=== PATIENT | female | born 1990 | race Caucasian/White ===

== ENCOUNTER 2016-06-28 06:31 | Day surgery (SDC) | payer BC ==
[~2016-06-28] VITALS: Ht 160 cm; Wt 90.0 kg
[~2016-06-28 06:31] MED LIST: BUPIVACAINE/PF-EPI 0.25% 1:200K ONE; CIPR500T87 PO; OXYC-302 PO
[2016-06-28] MEDS ORDERED: FENTANYL PF 250 MCG/5ML ONE (06:46)
[2016-06-28] MEDS ORDERED: LIDOCAINE 1%, 2ML ONE (06:52)
[2016-06-28 07:03] VITALS: BP 113/77
[2016-06-28] MEDS ORDERED: LACTATED RINGERS 1,000 ML IV SCH ×2 (07:09→08:17)
[2016-06-28] MEDS ORDERED: LIDOCAINE 1%, 2ML SQ PRN (07:30)
[2016-06-28] MEDS ORDERED: PHENYLEPHRINE 10 MG/ML ONE (07:35)
[2016-06-28] MEDS ORDERED: DEXAMETHASONE 4 MG/ML, 1ML ONE (07:35)
[2016-06-28] MEDS ORDERED: ROCURONIUM 10 MG/ML ONE (07:35)
[2016-06-28] MEDS ORDERED: GLYCOPYRROLATE 0.2MG/1ML ONE (07:35)
[2016-06-28] MEDS ORDERED: PROPOFOL 10 MG/ML, 20ML ONE (07:35)
[2016-06-28] MEDS ORDERED: CEFAZOLIN 1,000 MG ONE (07:35)
[2016-06-28] MEDS ORDERED: NEOSTIGMINE 1 MG/ML, 10ML ONE (07:35)
[2016-06-28] MEDS ORDERED: EPHEDRINE 50 MG/ML, 1ML ONE (07:35)
[2016-06-28] MEDS ORDERED: SUCCINYLCHOLINE 20 MG/ML, 10ML ONE (07:35)
[2016-06-28] MEDS ORDERED: ONDANSETRON 2MG/ML, 2ML ONE (07:35)
[2016-06-28] MEDS ORDERED: SODIUM CITRATE/CITRIC ACID 30 ML UDC PO ONE (08:00)
[2016-06-28] MEDS ORDERED: PROMETHAZINE 25 MG/ML, 1ML IV PRN (08:30)
[2016-06-28] MEDS ORDERED: HYDROmorphone 1 MG/ML, 1ML IV PRN (08:30)
[2016-06-28] MEDS ORDERED: FENTANYL PF 100 MCG/2ML IV PRN (08:30)
[2016-06-28] MEDS ORDERED: HYDROcodone/APAP 5/325 TABLET PO PRN (08:30)
[2016-06-28] MEDS ORDERED: morphine SULFATE 10 MG/ML, 1ML IVPush PRN (08:30)
[2016-06-28] MEDS ORDERED: ACETAMINOPHEN 325 MG TABLET PO PRN (08:30)
[2016-06-28] MEDS ORDERED: ONDANSETRON 2MG/ML, 2ML IVPush PRN ×2 (08:30)
[2016-06-28] MEDS ORDERED: HYDROcodone/APAP 7.5-325MG/15ML UDC PO PRN (08:30)
[2016-06-28] MEDS ORDERED: OXYcodone 5 MG/5 ML ORAL.SOL UDC PO PRN (08:30)
[2016-06-28] MEDS ORDERED: ACETAMINOPHEN 325 MG TABLET ONE (08:54)
[2016-06-28] MEDS ORDERED: FENTANYL PF 100 MCG/2ML ONE (08:54)
[2016-06-28] MEDS ORDERED: ACETAMINOPHEN 650 MG/20.3 ML UDC ONE (08:54)
[2016-06-28] MEDS ORDERED: OXYcodone 5 MG/5 ML ORAL.SOL UDC ONE (08:55)
[2016-06-28] MEDS ORDERED: HYDROmorphone 2 MG/ML, 1ML ONE (09:21)
== END 2016-06-28 12:20 | disposition home or self-care (01) ==
LOC: OUT 06:31
PROVIDERS: ATTEND Thoracic Surgery (Cardiothoracic Vascular Surgery)
DX: O99.612 Diseases of the digestive system complicating pregnancy, second trimester (principal); K80.10 Calculus of gallbladder with chronic cholecystitis without obstruction; Z3A.16 16 weeks gestation of pregnancy
CPT/HCPCS: 47562; 88304; A4649; J0330; J0690; J1100; J1170; J2370; J2405; J2704; J2710; J3010; J3490; J7120

== ENCOUNTER 2016-07-03 15:40 | Emergency (ER) | payer BC ==
[~2016-07-03 15:40] MED LIST changes: -BUPIVACAINE/PF-EPI 0.25% 1:200K ONE
[2016-07-03] MEDS ORDERED: HYDROmorphone 1 MG/ML, 1ML ONE ×2 (16:26→17:57)
[2016-07-03] MEDS ORDERED: ONDANSETRON 2MG/ML, 2ML ONE (16:26)
[2016-07-03] MEDS ORDERED: SODIUM CHLORIDE 0.9% 1,000ML IVBOLUS ONE (16:30)
[2016-07-03] MEDS ORDERED: SODIUM CHLORIDE FLUSH 10ML SYR IVF ONE (16:30)
[2016-07-03] MEDS ORDERED: ONDANSETRON 2MG/ML, 2ML IVPush ONE (16:30)
[2016-07-03] MEDS: HYDROmorphone 1 MG/ML, 1ML IVPush PRN ×2 (16:42→18:01)
[2016-07-03 16:45] LABS: BLOOD UREA NITROGEN 7 mg/dL (7-18)
[2016-07-03 16:49] LABS: ASPARTATE AMINO TRANSFERASE 5 U/L (15-37)
[2016-07-03 20:07] VITALS: BP 118/70
== END 2016-07-03 20:10 | disposition home or self-care (01) ==
LOC: ED 19:21
DX: O26.892 Other specified pregnancy related conditions, second trimester (principal); N13.2 Hydronephrosis with renal and ureteral calculous obstruction; Z3A.17 17 weeks gestation of pregnancy; Z87.440 Personal history of urinary (tract) infections; Z87.442 Personal history of urinary calculi; Z90.49 Acquired absence of other specified parts of digestive tract; Z96.89 Presence of other specified functional implants
CPT/HCPCS: 36415; 76700; 76815; 80053; 81001; 83690; 85025; 96374; 96375; 96376; 99285; J1170; J2405; J7030

== ENCOUNTER 2016-07-03 20:20 | Observation (INO) | payer BC ==
[2016-07-03] MEDS ORDERED: D5%-LACTATED RINGERS 1,000 ML IV SCH (21:00)
[2016-07-03] MEDS ORDERED: LACTATED RINGERS 1,000 ML IVBOLUS ONE (21:00)
[2016-07-03] MEDS ORDERED: ONDANSETRON 2MG/ML, 2ML IVPush PRN (21:00)
[2016-07-03] MEDS ORDERED: METOCLOPRAMIDE 5 MG/ML, 2ML IVPush PRN (21:00)
[2016-07-03] MEDS ORDERED: ONDANSETRON 2MG/ML, 2ML ONE (21:26)
[2016-07-03] MEDS ORDERED: KETOROLAC 30 MG/1 ML ONE (21:26)
[2016-07-03] MEDS ORDERED: KETOROLAC 30 MG/1 ML IVPush SCH (21:30)
[2016-07-03] MEDS ORDERED: PLEASE ENTER HEIGHT AND WEIGHT MC SCH (22:00)
[2016-07-04] MEDS ORDERED: PLEASE ENTER HEIGHT AND WEIGHT MC SCH (05:00)
== END 2016-07-04 07:30 | disposition home or self-care (01) ==
LOC: LDIP 20:20
PROVIDERS: ADMIT Obstetrics & Gynecology; ATTEND Obstetrics & Gynecology
DX: O26.892 Other specified pregnancy related conditions, second trimester (principal); O99.212 Obesity complicating pregnancy, second trimester; E66.01 Morbid (severe) obesity due to excess calories; O21.2 Late vomiting of pregnancy; R10.9 Unspecified abdominal pain; Z3A.20 20 weeks gestation of pregnancy; Z90.49 Acquired absence of other specified parts of digestive tract; Z87.442 Personal history of urinary calculi
CPT/HCPCS: 36415; 59025; 85613; 85670; 85705; 85732; 96361; 96374; 96375; 99201; G0378; J1885; J2405; J7120; 96360; 96372; G0463; J7121

== ENCOUNTER 2016-09-11 13:15 | Outpatient (CLI) | payer BC ==
[~2016-09-11] VITALS: Ht 160 cm; Wt 90.9 kg
[2016-09-11 13:26] VITALS: BP 99/58
== END 2016-09-11 15:15 | disposition home or self-care (01) ==
LOC: LDOP 13:15
PROVIDERS: ATTEND Obstetrics & Gynecology
DX: O26.893 Other specified pregnancy related conditions, third trimester (principal); R10.9 Unspecified abdominal pain; Z3A.30 30 weeks gestation of pregnancy
CPT/HCPCS: 36415; 59025; 81001; 82731; 87086; 99211; G0463

== ENCOUNTER 2016-10-05 11:55 | Outpatient (CLI) | payer BC ==
[~2016-10-05] VITALS: Ht 160 cm; Wt 95.4 kg
== END 2016-10-05 13:30 | disposition home or self-care (01) ==
LOC: LDOP 11:55
PROVIDERS: ATTEND Obstetrics & Gynecology
DX: O26.893 Other specified pregnancy related conditions, third trimester (principal); O62.9 Abnormality of forces of labor, unspecified; O21.0 Mild hyperemesis gravidarum; O26.833 Pregnancy related renal disease, third trimester; O99.613 Diseases of the digestive system complicating pregnancy, third trimester; N20.0 Calculus of kidney; Z90.49 Acquired absence of other specified parts of digestive tract; Z3A.33 33 weeks gestation of pregnancy
CPT/HCPCS: 59025; 81001; 87086; 99211; G0463

== ENCOUNTER → 2016-11-05 | Outpatient (CLI) | payer BC ==
[2016-11-05 06:27] VITALS: BP 121/87
== END | disposition home or self-care (01) ==
LOC: LDOP 06:10
PROVIDERS: ATTEND Obstetrics & Gynecology
DX: O26.893 Other specified pregnancy related conditions, third trimester (principal); O21.0 Mild hyperemesis gravidarum; O62.9 Abnormality of forces of labor, unspecified; O26.833 Pregnancy related renal disease, third trimester; N20.0 Calculus of kidney; Z3A.33 33 weeks gestation of pregnancy
CPT/HCPCS: 59025; 81001; 87086; 99211; G0463

== ENCOUNTER 2016-11-19 21:02 | Inpatient (IN) | payer BC ==
[~2016-11-19] VITALS: Ht 153.2 cm; Wt 95.0 kg
[2016-11-19 21:55] VITALS: BP 120/78
[2016-11-19] MEDS ORDERED: OXYTOCIN 30U/ 0.9% NaCL 500ML 500 ML IV PRN (23:39)
[2016-11-19] MEDS ORDERED: D5%-LACTATED RINGERS 1,000 ML IV SCH (23:39)
[2016-11-19] MEDS ORDERED: OXYTOCIN 30U/ 0.9% NaCL 500ML 500 ML IV ONE (23:39)
[2016-11-19] MEDS: LACTATED RINGERS 1,000 ML IV SCH (23:45)
[2016-11-20] MEDS ORDERED: TERBUTALINE 1 MG/ML, 1ML IVPush PRN
[2016-11-20] MEDS ORDERED: SODIUM CITRATE/CITRIC ACID 30 ML UDC PO PRN
[2016-11-20] MEDS ORDERED: ONDANSETRON 2MG/ML, 2ML IVPush PRN
[2016-11-20] MEDS ORDERED: FENTANYL PF 100 MCG/2ML IV PRN
[2016-11-20] MEDS ORDERED: METOCLOPRAMIDE 5 MG/ML, 2ML IVPush PRN
[2016-11-20 00:01] LABS: HEMATOCRIT 38.1 % (34.6-47.8); HEMOGLOBIN 12.6 g/dL (11.7-16.4); WHITE BLOOD COUNT 11.4 x10^3/uL (3.4-10)
[2016-11-20] MEDS: FENTANYL PF 100 MCG/2ML IVPush PRN ×4 (00:07→04:55)
[2016-11-20] MEDS: LACTATED RINGERS 1,000 ML IV SCH ×2 (04:55→15:39)
[2016-11-20] MEDS ORDERED: METHYLERGONOVINE 0.2 MG/ML IM PRN (07:00)
[2016-11-20] MEDS ORDERED: CALCIUM CARBONATE 500 MG TAB.CHEW PO PRN ×2 (07:00)
[2016-11-20] MEDS ORDERED: MISOPROSTOL 200 MCG TABLET PR PRN (07:00)
[2016-11-20] MEDS ORDERED: DOCUSATE 100 MG CAPSULE PO PRN (07:00)
[2016-11-20] MEDS ORDERED: CARBOPROST TROMETHAMINE 250 MCG/ML, 1ML IM PRN (07:00)
[2016-11-20] MEDS ORDERED: ONDANSETRON 2MG/ML, 2ML IV PRN (07:00)
[2016-11-20] MEDS ORDERED: ACETAMINOPHEN 325 MG TABLET PO PRN (07:00)
[2016-11-20] MEDS ORDERED: HYDROcodone/APAP 5/325 TABLET PO PRN ×2 (07:00)
[2016-11-20] MEDS ORDERED: IBUPROFEN 600 MG TABLET ONE (07:15)
[2016-11-20] MEDS: IBUPROFEN 600 MG TABLET PO PRN ×2 (07:17→16:38)
[2016-11-20] MEDS ORDERED: OXYTOCIN 30U/ 0.9% NaCL 500ML 500 ML ONE (07:47)
[2016-11-20] MEDS: OXYTOCIN 30U/ 0.9% NaCL 500ML 500 ML IV SCH ×2 (07:52→16:49)
[2016-11-20] MEDS ORDERED: PRENATAL VIT/IRON/FA 1 EACH TABLET PO SCH (09:00)
[2016-11-20 12:25] VITALS: BP 105/56
[2016-11-20 14:28] LABS: HEMATOCRIT 34.5 % (34.6-47.8); HEMOGLOBIN 11.5 g/dL (11.7-16.4); WHITE BLOOD COUNT 12.3 x10^3/uL (3.4-10)
[2016-11-20 16:20] VITALS: BP 102/61
[2016-11-20 20:05] VITALS: BP 101/57
[2016-11-20] MEDS ORDERED: DIPH,PERTUSS(ACELL),TET VAC/PF NC IM-VACC ONE (21:00)
[2016-11-21 01:00] VITALS: BP 104/65
[2016-11-21] MEDS: OXYTOCIN 30U/ 0.9% NaCL 500ML 500 ML IV SCH (02:49)
[2016-11-21 04:55] VITALS: BP 116/68
[2016-11-21 08:05] VITALS: BP 93/57
== END 2016-11-21 11:10 | disposition home or self-care (01) | DRG 775 ==
LOC: LDOP 21:02 → LDIP 11-20 00:12 → 2NW 11-20 08:40
PROVIDERS: ADMIT Obstetrics & Gynecology; ATTEND Obstetrics & Gynecology
PROC: 10E0XZZ Delivery of Products of Conception, External Approach (ICD-10-PCS; principal; 2016-11-20)
PROC: 10907ZC Drainage of Amniotic Fluid, Therapeutic from Products of Conception, Via Natural or Artificial Opening (ICD-10-PCS; 2016-11-20)
DX: O69.81X0 Labor and delivery complicated by cord around neck, without compression, not applicable or unspecified (principal); Z37.0 Single live birth; Z3A.40 40 weeks gestation of pregnancy
CPT/HCPCS: 36415; 85025; 86850; 86900; 89060; 90715; J3010; J2590; J7120; Q0114

== ENCOUNTER 2017-08-01 17:54 | Emergency (ER) | payer BC ==
[~2017-08-01] VITALS: Ht 167.6 cm; Wt 110.0 kg
[2017-08-01] MEDS ORDERED: SODIUM CHLORIDE FLUSH 10ML SYR IVF ONE (18:00)
[2017-08-01] MEDS ORDERED: METOCLOPRAMIDE 5 MG/ML, 2ML IVPush ONE (18:00)
[2017-08-01] MEDS ORDERED: D5%-0.9% NACL 1,000 ML IV SCH (18:00)
[2017-08-01] MEDS ORDERED: METOCLOPRAMIDE 5 MG/ML, 2ML ONE (18:10)
[2017-08-01 18:42] LABS: BASOPHILS # (AUTO) 0.07 x10^3/uL (0-0.1); BASOPHILS % (AUTO) 1 % (0-1); EOSINOPHILS # (AUTO) 0.07 x10^3/uL (0-0.4); EOSINOPHILS % (AUTO) 1 % (1-7); LYMPHOCYTES % (AUTO) 17 % (22-44); MD NO; MEAN CORPUSCULAR HEMOGLOBIN 26.6 pg (27.0-34.8); MEAN CORPUSCULAR HGB CONC 33.4 g/dL (32.4-35.8); MEAN CORPUSCULAR VOLUME 79.5 fL (80-100); MEAN PLATELET VOLUME 9.2 fL (7.4-10.4); MONOCYTES # (AUTO) 0.63 x10^3/uL (0.2-0.8); MONOCYTES % (AUTO) 6 % (2-9); NEUTROPHILS # (AUTO) 7.94 x10^3/uL (1.8-6.8); NEUTROPHILS % (AUTO) 76 % (42-75); PLATELET COUNT 267 x10^3/uL (130-400); RED BLOOD COUNT 4.67 x10^6/uL (3.82-5.3); RED CELL DISTRIBUTION WIDTH 15.4 % (9.6-15.2)
[2017-08-01 18:54] LABS: ALBUMIN 3.2 g/dL (3.4-5.0); ANION GAP 10 mmol/L (5-15); CHLORIDE 110 mmol/L (98-107)
[2017-08-01 19:14] LABS: CREATININE 0.48 mg/dL (0.55-1.02)
[2017-08-01 19:54] LABS: CULTURE INDICATED? YES; MICROSCOPIC INDICATED
[2017-08-01 20:32] VITALS: BP 116/69
== END 2017-08-01 20:38 | disposition home or self-care (01) ==
LOC: ED 20:30
DX: O21.8 Other vomiting complicating pregnancy (principal); O26.891 Other specified pregnancy related conditions, first trimester; R79.89 Other specified abnormal findings of blood chemistry; Z3A.09 9 weeks gestation of pregnancy
CPT/HCPCS: 76801; 80048; 81001; 82040; 82962; 84702; 85025; 87086; 99281; J2765; J7042

== ENCOUNTER 2017-09-11 13:17 | Inpatient (IN) | payer BC ==
[~2017-09-11] VITALS: Ht 160 cm; Wt 88.8 kg
[2017-09-11] MEDS ORDERED: ONDANSETRON ODT 4 MG PO ONE (13:30)
[2017-09-11] MEDS ORDERED: ONDA4TAB10 PO (13:31)
[2017-09-11] MEDS ORDERED: ONDANSETRON ODT 4 MG ONE (13:33)
[2017-09-11 13:48] LABS: BASOPHILS # (AUTO) 0.04 x10^3/uL (0-0.1); BASOPHILS % (AUTO) 1 % (0-1); EOSINOPHILS # (AUTO) 0.09 x10^3/uL (0-0.4); EOSINOPHILS % (AUTO) 1 % (1-7); LYMPHOCYTES # (AUTO) 0.84 x10^3/uL (1-3.4); LYMPHOCYTES % (AUTO) 10 % (22-44); MD NO; MEAN CORPUSCULAR HEMOGLOBIN 27.3 pg (27.0-34.8); MEAN CORPUSCULAR HGB CONC 33.9 g/dL (32.4-35.8); MEAN CORPUSCULAR VOLUME 80.7 fL (80-100); MEAN PLATELET VOLUME 9.1 fL (7.4-10.4); MONOCYTES # (AUTO) 0.96 x10^3/uL (0.2-0.8); MONOCYTES % (AUTO) 11 % (2-9); NEUTROPHILS # (AUTO) 6.87 x10^3/uL (1.8-6.8); NEUTROPHILS % (AUTO) 78 % (42-75); PLATELET COUNT 212 x10^3/uL (130-400); RED BLOOD COUNT 3.94 x10^6/uL (3.82-5.3); RED CELL DISTRIBUTION WIDTH 15.9 % (9.6-15.2)
[2017-09-11 13:56] LABS: ALANINE AMINOTRANSFERASE 16 U/L (12-78); ALBUMIN 2.7 g/dL (3.4-5.0); ANION GAP 10 mmol/L (5-15); CALCIUM 8.7 mg/dL (8.5-10.1); CHLORIDE 108 mmol/L (98-107)
[2017-09-11 13:59] LABS: ALKALINE PHOSPHATASE 54 U/L (45-117); BILIRUBIN,TOTAL 0.6 mg/dL (0.2-1.0); CREATININE 0.39 mg/dL (0.55-1.02); TOTAL PROTEIN 6.8 g/dL (6.4-8.2)
[2017-09-11 14:37] LABS: MICROSCOPIC AUTO
[2017-09-11 14:39] LABS: CULTURE INDICATED? YES
[2017-09-11] MEDS ORDERED: POTASSIUM CHLORIDE 20 MEQ TAB.ER.PRT ONE (14:41)
[2017-09-11] MEDS ORDERED: CEFTRIAXONE PMX 1GM/50ML 50 ML ONE (14:52)
[2017-09-11] MEDS ORDERED: OXYcodone/APAP 5/325MG TABLET ONE (14:57)
[2017-09-11] MEDS ORDERED: OXYcodone/APAP 5/325MG TABLET PO ONE (15:00)
[2017-09-11] MEDS ORDERED: POTASSIUM CHLORIDE 20 MEQ TAB.ER.PRT PO ONE (15:00)
[2017-09-11] MEDS ORDERED: CEFTRIAXONE PMX 1GM/50ML 50 ML IVPB ONE (15:00)
[2017-09-11 16:25] VITALS: BP 106/74
[2017-09-11] MEDS: CEFTRIAXONE PMX 2GM/50ML 50 ML IV SCH (17:34)
[2017-09-11] MEDS: SODIUM CHLORIDE 0.9% 1,000 ML IV SCH (17:35)
[2017-09-11] MEDS: POTASSIUM CHLORIDE 20 MEQ TAB.ER.PRT PO SCH ×2 (17:36→19:41)
[2017-09-11] MEDS: ACETAMINOPHEN 325 MG TABLET PO PRN (19:48)
[2017-09-11 20:08] VITALS: BP 109/69
[2017-09-12] MEDS: ACETAMINOPHEN 325 MG TABLET PO PRN ×2 (00:17→04:31)
[2017-09-12] MEDS: HYDROmorphone 2 MG/ML, 1ML IVPush PRN ×5 (00:18→19:45)
[2017-09-12 01:57] VITALS: BP 108/60
[2017-09-12] MEDS: SODIUM CHLORIDE 0.9% 1,000 ML IV SCH ×3 (02:09→17:41)
[2017-09-12 04:58] LABS: BASOPHILS # (AUTO) 0.02 x10^3/uL (0-0.1); BASOPHILS % (AUTO) 0 % (0-1); EOSINOPHILS # (AUTO) 0.15 x10^3/uL (0-0.4); EOSINOPHILS % (AUTO) 2 % (1-7); LYMPHOCYTES # (AUTO) 1.15 x10^3/uL (1-3.4); LYMPHOCYTES % (AUTO) 17 % (22-44); MD NO; MEAN CORPUSCULAR HEMOGLOBIN 26.4 pg (27.0-34.8); MEAN CORPUSCULAR HGB CONC 32.4 g/dL (32.4-35.8); MEAN CORPUSCULAR VOLUME 81.4 fL (80-100); MEAN PLATELET VOLUME 9.3 fL (7.4-10.4); MONOCYTES # (AUTO) 0.82 x10^3/uL (0.2-0.8); MONOCYTES % (AUTO) 12 % (2-9); NEUTROPHILS # (AUTO) 4.81 x10^3/uL (1.8-6.8); NEUTROPHILS % (AUTO) 69 % (42-75); PLATELET COUNT 203 x10^3/uL (130-400); RED BLOOD COUNT 4.06 x10^6/uL (3.82-5.3)
[2017-09-12 05:03] LABS: ALANINE AMINOTRANSFERASE 13 U/L (12-78); ALBUMIN 2.3 g/dL (3.4-5.0); ANION GAP 9 mmol/L (5-15); CALCIUM 8.4 mg/dL (8.5-10.1); CHLORIDE 113 mmol/L (98-107); CREATININE 0.36 mg/dL (0.55-1.02)
[2017-09-12 05:06] LABS: ALKALINE PHOSPHATASE 56 U/L (45-117); BILIRUBIN,TOTAL 0.5 mg/dL (0.2-1.0); TOTAL PROTEIN 6.1 g/dL (6.4-8.2)
[2017-09-12 07:35] VITALS: BP 111/79
[2017-09-12] MEDS: ONDANSETRON 2MG/ML, 2ML IVPush PRN ×2 (09:54→16:13)
[2017-09-12] MEDS ORDERED: OXYcodone IR 5MG TABLET PO PRN (11:00)
[2017-09-12 14:09] VITALS: BP 122/81
[2017-09-12] MEDS: CEFTRIAXONE PMX 2GM/50ML 50 ML IV SCH (16:13)
[2017-09-12 20:21] VITALS: BP 112/73
[2017-09-13] MEDS: ONDANSETRON 2MG/ML, 2ML IVPush PRN ×2 (01:41→08:05)
[2017-09-13] MEDS: SODIUM CHLORIDE 0.9% 1,000 ML IV SCH ×2 (01:45→08:01)
[2017-09-13 03:04] VITALS: BP 113/72
[2017-09-13] MEDS: HYDROmorphone 2 MG/ML, 1ML IVPush PRN (05:31)
[2017-09-13 07:02] VITALS: BP 103/66
[2017-09-13] MEDS ORDERED: CEFD300C37 PO (11:04)
== END 2017-09-13 14:00 | disposition home or self-care (01) | DRG 781 ==
LOC: ED 14:30 → EDIP 15:15 → 4NOR 16:02 → DCLOUNGE 09-13 13:45
PROVIDERS: ADMIT Internal Medicine; ATTEND Internal Medicine
DX: O23.00 Infections of kidney in pregnancy, unspecified trimester (principal); E43 Unspecified severe protein-calorie malnutrition; N13.2 Hydronephrosis with renal and ureteral calculous obstruction; D64.9 Anemia, unspecified; Z68.34 Body mass index [BMI] 34.0-34.9, adult; E66.01 Morbid (severe) obesity due to excess calories; E87.6 Hypokalemia; O25.12 Malnutrition in pregnancy, second trimester; O99.012 Anemia complicating pregnancy, second trimester; O99.212 Obesity complicating pregnancy, second trimester; O99.282 Endocrine, nutritional and metabolic diseases complicating pregnancy, second trimester; Z3A.16 16 weeks gestation of pregnancy; Z90.49 Acquired absence of other specified parts of digestive tract
CPT/HCPCS: 36415; 76770; 80053; 81001; 83605; 83735; 84100; 85025; 87040; 87086; 96365; J0696; J1170; J2405; Q0162; J7030

== ENCOUNTER 2017-10-05 02:43 | Emergency (ER) | payer BC ==
[~2017-10-05] VITALS: Ht 167.6 cm; Wt 74.0 kg
[~2017-10-05 02:43] MED LIST changes: +CEFD300C37 PO; +ONDA4TAB10 PO
[2017-10-05] MEDS ORDERED: HYDROmorphone 2 MG/ML, 1ML ONE ×2 (02:56→04:42)
[2017-10-05] MEDS ORDERED: PROMETHAZINE 25 MG/ML, 1ML ONE (02:57)
[2017-10-05] MEDS ORDERED: SODIUM CHLORIDE 0.9% 1,000ML IVBOLUS ONE (03:00)
[2017-10-05] MEDS ORDERED: PROMETHAZINE 25 MG/ML, 1ML IM ONE (03:00)
[2017-10-05] MEDS ORDERED: SODIUM CHLORIDE FLUSH 10ML SYR IVF ONE (03:00)
[2017-10-05 03:10] LABS: BASOPHILS # (AUTO) 0.05 x10^3/uL (0-0.1); BASOPHILS % (AUTO) 1 % (0-1); EOSINOPHILS # (AUTO) 0.16 x10^3/uL (0-0.4); EOSINOPHILS % (AUTO) 2 % (1-7); LYMPHOCYTES # (AUTO) 1.44 x10^3/uL (1-3.4); LYMPHOCYTES % (AUTO) 14 % (22-44); MD NO; MEAN CORPUSCULAR HEMOGLOBIN 27.3 pg (27.0-34.8); MEAN CORPUSCULAR HGB CONC 33.2 g/dL (32.4-35.8); MEAN CORPUSCULAR VOLUME 82.4 fL (80-100); MEAN PLATELET VOLUME 9.2 fL (7.4-10.4); MONOCYTES # (AUTO) 0.81 x10^3/uL (0.2-0.8); MONOCYTES % (AUTO) 8 % (2-9); NEUTROPHILS # (AUTO) 7.56 x10^3/uL (1.8-6.8); NEUTROPHILS % (AUTO) 75 % (42-75); PLATELET COUNT 211 x10^3/uL (130-400); RED BLOOD COUNT 4.09 x10^6/uL (3.82-5.3); RED CELL DISTRIBUTION WIDTH 15.4 % (9.6-15.2)
[2017-10-05] MEDS: HYDROmorphone 2 MG/ML, 1ML IVPush PRN ×2 (03:10→04:47)
[2017-10-05 03:24] LABS: ALANINE AMINOTRANSFERASE 12 U/L (12-78); ALBUMIN 2.6 g/dL (3.4-5.0); ANION GAP 9 mmol/L (5-15); CALCIUM 8.5 mg/dL (8.5-10.1); CHLORIDE 110 mmol/L (98-107); CREATININE 0.78 mg/dL (0.55-1.02)
[2017-10-05 03:26] LABS: ALKALINE PHOSPHATASE 54 U/L (45-117); BILIRUBIN,TOTAL 0.2 mg/dL (0.2-1.0); TOTAL PROTEIN 6.6 g/dL (6.4-8.2)
[2017-10-05 04:45] LABS: CULTURE INDICATED? NO; MICROSCOPIC NOT IND
[2017-10-05 04:46] VITALS: BP 125/72
== END 2017-10-05 05:19 | disposition home or self-care (01) ==
LOC: ED 04:50
DX: O26.892 Other specified pregnancy related conditions, second trimester (principal); Z3A.18 18 weeks gestation of pregnancy; N13.2 Hydronephrosis with renal and ureteral calculous obstruction; R31.9 Hematuria, unspecified; Z90.49 Acquired absence of other specified parts of digestive tract
CPT/HCPCS: 36415; 76770; 76815; 80053; 81003; 85025; 96372; 96374; 96376; 99285; J1170; J2550; J7030

== ENCOUNTER 2017-11-27 12:24 | Observation (INO) | payer BC ==
[~2017-11-27] VITALS: Ht 157.5 cm; Wt 97.7 kg
[2017-11-27 12:47] VITALS: BP 122/64
[2017-11-27] MEDS ORDERED: LACTATED RINGERS 1,000 ML IV SCH (13:30)
[2017-11-27] MEDS ORDERED: LACTATED RINGERS 1,000 ML IVBOLUS ONE (13:30)
[2017-11-27] MEDS ORDERED: ONDANSETRON 2MG/ML, 2ML IVPush PRN (13:30)
[2017-11-27] MEDS ORDERED: KETOROLAC 30 MG/1 ML IM SCH (13:30)
[2017-11-27 13:39] LABS: MICROSCOPIC INDICATED
[2017-11-27] MEDS ORDERED: KETOROLAC 30 MG/1 ML ONE (13:42)
== END 2017-11-27 16:55 | disposition home or self-care (01) ==
LOC: LDOP 12:24 → LDIP 13:42
PROVIDERS: ADMIT Obstetrics & Gynecology; ATTEND Obstetrics & Gynecology
DX: O26.892 Other specified pregnancy related conditions, second trimester (principal); R10.9 Unspecified abdominal pain; Z3A.25 25 weeks gestation of pregnancy
CPT/HCPCS: 59025; 76770; 81001; 87086; 96372; 96374; G0378; J1885; J2405; J7120; 96361

== ENCOUNTER 2018-01-06 17:14 | Emergency (ER) | payer BC ==
[~2018-01-06] VITALS: Ht 160 cm; Wt 97.1 kg
[2018-01-06 18:22] LABS: BASOPHILS # (AUTO) 0.06 x10^3/uL (0-0.1); BASOPHILS % (AUTO) 1 % (0-1); EOSINOPHILS # (AUTO) 0.11 x10^3/uL (0-0.4); EOSINOPHILS % (AUTO) 1 % (1-7); LYMPHOCYTES # (AUTO) 1.76 x10^3/uL (1-3.4); LYMPHOCYTES % (AUTO) 17 % (22-44); MD NO; MEAN CORPUSCULAR HEMOGLOBIN 25.7 pg (27.0-34.8); MEAN CORPUSCULAR HGB CONC 32.8 g/dL (32.4-35.8); MEAN CORPUSCULAR VOLUME 78.3 fL (80-100); MEAN PLATELET VOLUME 9.1 fL (7.4-10.4); MONOCYTES # (AUTO) 0.82 x10^3/uL (0.2-0.8); MONOCYTES % (AUTO) 8 % (2-9); NEUTROPHILS # (AUTO) 7.63 x10^3/uL (1.8-6.8); NEUTROPHILS % (AUTO) 74 % (42-75); PLATELET COUNT 252 x10^3/uL (130-400); RED BLOOD COUNT 3.95 x10^6/uL (3.82-5.3); RED CELL DISTRIBUTION WIDTH 15.8 % (9.6-15.2)
[2018-01-06 18:31] LABS: ALBUMIN 2.5 g/dL (3.4-5.0); ANION GAP 8 mmol/L (5-15); CALCIUM 8.6 mg/dL (8.5-10.1); CHLORIDE 109 mmol/L (98-107); CREATININE 0.47 mg/dL (0.55-1.02)
[2018-01-06] MEDS ORDERED: OMNIPAQUE 350 MG/ML, 75ML BOTTLE ONE (18:36)
[2018-01-06 19:28] VITALS: BP 122/64
== END 2018-01-06 19:29 | disposition home or self-care (01) ==
LOC: ED 19:00
DX: O26.893 Other specified pregnancy related conditions, third trimester (principal); R42 Dizziness and giddiness; Z3A.32 32 weeks gestation of pregnancy
CPT/HCPCS: 36415; 70460; 80048; 82040; 85025; 99285; Q9967

== ENCOUNTER 2018-01-30 13:10 | Emergency (ER) | payer BC ==
[~2018-01-30] VITALS: Ht 160 cm; Wt 99.3 kg
[2018-01-30 14:10] LABS: MICROSCOPIC INDICATED
[2018-01-30 14:11] LABS: CULTURE INDICATED? YES
[2018-01-30 14:57] LABS: BASOPHILS # (AUTO) 0.03 x10^3/uL (0-0.1); BASOPHILS % (AUTO) 0 % (0-1); EOSINOPHILS # (AUTO) 0.11 x10^3/uL (0-0.4); EOSINOPHILS % (AUTO) 1 % (1-7); LYMPHOCYTES # (AUTO) 1.59 x10^3/uL (1-3.4); LYMPHOCYTES % (AUTO) 16 % (22-44); MD NO; MEAN CORPUSCULAR HEMOGLOBIN 25.2 pg (27.0-34.8); MEAN CORPUSCULAR HGB CONC 32.5 g/dL (32.4-35.8); MEAN CORPUSCULAR VOLUME 77.3 fL (80-100); MEAN PLATELET VOLUME 9.2 fL (7.4-10.4); MONOCYTES # (AUTO) 0.77 x10^3/uL (0.2-0.8); MONOCYTES % (AUTO) 8 % (2-9); NEUTROPHILS # (AUTO) 7.47 x10^3/uL (1.8-6.8); NEUTROPHILS % (AUTO) 75 % (42-75); PLATELET COUNT 241 x10^3/uL (130-400); RED BLOOD COUNT 4.19 x10^6/uL (3.82-5.3); RED CELL DISTRIBUTION WIDTH 16.7 % (9.6-15.2)
[2018-01-30 15:09] LABS: ALBUMIN 2.4 g/dL (3.4-5.0); ANION GAP 10 mmol/L (5-15); CALCIUM 8.4 mg/dL (8.5-10.1); CHLORIDE 110 mmol/L (98-107); CREATININE 0.43 mg/dL (0.55-1.02)
[2018-01-30 15:13] LABS: TROPONIN I < 0.015 ng/mL (0.000-0.045)
[2018-01-30] MEDS ORDERED: ACETAMINOPHEN 500 MG TABLET ONE (15:17)
[2018-01-30] MEDS ORDERED: CYCLOBENZAPRINE 10 MG TABLET ONE (15:17)
[2018-01-30] MEDS ORDERED: ACETAMINOPHEN 500 MG TABLET PO ONE (15:30)
[2018-01-30] MEDS ORDERED: CYCLOBENZAPRINE 10 MG TABLET PO ONE (15:30)
[2018-01-30 15:35] LABS: ALBUMIN 2.4 g/dL (3.4-5.0); BILIRUBIN, DIRECT 0.1 mg/dL (0.1-0.2)
[2018-01-30 15:37] LABS: BILIRUBIN,INDIRECT 0.2 mg/dL (0.0-2.0); BILIRUBIN,TOTAL 0.3 mg/dL (0.2-1.0); TOTAL PROTEIN 6.8 g/dL (6.4-8.2)
[2018-01-30 15:42] VITALS: BP 115/69
== END 2018-01-30 15:49 | disposition home or self-care (01) ==
LOC: ED 13:52
DX: M62.838 Other muscle spasm (principal); N30.00 Acute cystitis without hematuria
CPT/HCPCS: 36415; 70551; 71045; 80048; 80076; 81001; 82040; 83880; 84484; 85025; 87077; 87086; 87186; 93005; 99284

== ENCOUNTER 2018-01-30 15:57 | Outpatient (CLI) | payer BC ==
[~2018-01-30] VITALS: Ht 160 cm; Wt 97.2 kg
[2018-01-30 16:02] VITALS: BP 122/76
== END 2018-01-30 18:28 | disposition home or self-care (01) ==
LOC: LDOP 15:57
PROVIDERS: ATTEND Obstetrics & Gynecology
DX: O36.8130 Decreased fetal movements, third trimester, not applicable or unspecified (principal); Z3A.35 35 weeks gestation of pregnancy
CPT/HCPCS: 59025; 76819; 99211; G0463

== ENCOUNTER 2018-02-09 18:04 | Inpatient (IN) | payer BC ==
[~2018-02-09] VITALS: Ht 160 cm; Wt 100.0 kg
[~2018-02-09 18:04] MED LIST changes: +ANTIBIOTIC
[2018-02-09 19:15] VITALS: BP 106/59
[2018-02-09] MEDS ORDERED: LACTATED RINGERS 1,000 ML IVBOLUS ONE (20:00)
[2018-02-09] MEDS ORDERED: ACETAMINOPHEN 325 MG TABLET ONE (21:46)
[2018-02-09] MEDS: ACETAMINOPHEN 325 MG TABLET PO PRN (21:49)
[2018-02-10] MEDS ORDERED: ACETAMINOPHEN 325 MG TABLET ONE ×2 (04:52→16:11)
[2018-02-10] MEDS: ACETAMINOPHEN 325 MG TABLET PO PRN ×2 (04:54→16:12)
[2018-02-10] MEDS: CEFTRIAXONE PMX 1GM/50ML 50 ML IV SCH ×2 (05:50→17:16)
[2018-02-10] MEDS ORDERED: FERROUS SULFATE 325 MG TABLET ONE ×2 (08:45→16:48)
[2018-02-10] MEDS ORDERED: DOCUSATE 100 MG CAPSULE ONE ×2 (08:45→21:44)
[2018-02-10] MEDS ORDERED: PRENATAL VIT/IRON/FA 1 EACH TABLET ONE (08:46)
[2018-02-10] MEDS: DOCUSATE 100 MG CAPSULE PO SCH ×2 (08:51→21:47)
[2018-02-10] MEDS: PRENATAL VIT/IRON/FA 1 EACH TABLET PO SCH (08:51)
[2018-02-10] MEDS: FERROUS SULFATE 325 MG TABLET PO SCH ×2 (08:51→17:16)
[2018-02-10] MEDS: GUAIFENESIN/DM 200-20MG, 10ML UDC PO PRN ×2 (15:35→21:47)
[2018-02-10] MEDS: LACTATED RINGERS 1,000 ML IV SCH ×2 (15:36→17:16)
[2018-02-11] MEDS: LACTATED RINGERS 1,000 ML IV SCH ×2 (01:55→10:50)
[2018-02-11] MEDS: CEFTRIAXONE PMX 1GM/50ML 50 ML IV SCH ×2 (06:01→17:06)
[2018-02-11] MEDS ORDERED: PRENATAL VIT/IRON/FA 1 EACH TABLET ONE (07:56)
[2018-02-11] MEDS ORDERED: FERROUS SULFATE 325 MG TABLET ONE (07:56)
[2018-02-11] MEDS ORDERED: DOCUSATE 100 MG CAPSULE ONE (07:56)
[2018-02-11] MEDS: FERROUS SULFATE 325 MG TABLET PO SCH (08:02)
[2018-02-11] MEDS: DOCUSATE 100 MG CAPSULE PO SCH (08:02)
[2018-02-11] MEDS: PRENATAL VIT/IRON/FA 1 EACH TABLET PO SCH (08:02)
== END 2018-02-11 18:23 | disposition home or self-care (01) | DRG 833 ==
LOC: LDIP 18:04
PROVIDERS: ADMIT Obstetrics & Gynecology; ATTEND Obstetrics & Gynecology
DX: O23.03 Infections of kidney in pregnancy, third trimester (principal); Z3A.36 36 weeks gestation of pregnancy; Z90.49 Acquired absence of other specified parts of digestive tract; Z87.442 Personal history of urinary calculi; Z87.440 Personal history of urinary (tract) infections; O99.213 Obesity complicating pregnancy, third trimester; E66.9 Obesity, unspecified; O99.013 Anemia complicating pregnancy, third trimester; D64.9 Anemia, unspecified
CPT/HCPCS: G0378; J0696; J7120

== ENCOUNTER 2018-03-05 11:09 | Outpatient (CLI) | payer BC ==
[~2018-03-05] VITALS: Ht 160 cm; Wt 100.0 kg
[2018-03-05 12:19] VITALS: BP 120/80
[2018-03-05] MEDS ORDERED: PREN1TAB10 PO (12:25)
[2018-03-05] MEDS ORDERED: FERR325T5 PO (12:34)
== END 2018-03-05 12:53 | disposition home or self-care (01) ==
LOC: LDOP 11:09
PROVIDERS: ATTEND Obstetrics & Gynecology
DX: O26.893 Other specified pregnancy related conditions, third trimester (principal); R10.9 Unspecified abdominal pain; Z3A.39 39 weeks gestation of pregnancy
CPT/HCPCS: 59025; 99211; G0463

== ENCOUNTER 2018-03-07 23:50 | Inpatient (IN) | payer BC ==
[~2018-03-07] VITALS: Ht 160 cm; Wt 100.0 kg
[~2018-03-07 23:50] MED LIST changes: +FERR325T5 PO; +PREN1TAB10 PO
[2018-03-08] MEDS ORDERED: OXYTOCIN 30U/ 0.9% NaCL 500ML 500 ML IV ONE (00:08)
[2018-03-08] MEDS ORDERED: D5%-LACTATED RINGERS 1,000 ML IV SCH (00:08)
[2018-03-08] MEDS ORDERED: OXYTOCIN 30U/ 0.9% NaCL 500ML 500 ML IV PRN (00:08)
[2018-03-08] MEDS ORDERED: NEWBORN KIT ONE (00:27)
[2018-03-08] MEDS ORDERED: MISOPROSTOL 200 MCG TABLET ONE (00:27)
[2018-03-08] MEDS ORDERED: LIDOCAINE 1%, 20ML ONE (00:27)
[2018-03-08] MEDS ORDERED: FENTANYL PF 100 MCG/2ML ONE ×4 (00:28→03:18)
[2018-03-08] MEDS ORDERED: OXYTOCIN 30U/ 0.9% NaCL 500ML 500 ML ONE ×2 (00:28→05:06)
[2018-03-08] MEDS ORDERED: ONDANSETRON 2MG/ML, 2ML IVPush PRN (00:30)
[2018-03-08] MEDS ORDERED: FENTANYL PF 100 MCG/2ML IV PRN (00:30)
[2018-03-08] MEDS ORDERED: CALCIUM CARBONATE 500 MG TAB.CHEW PO PRN (00:30)
[2018-03-08] MEDS ORDERED: TERBUTALINE 1 MG/ML, 1ML IVPush PRN (00:30)
[2018-03-08] MEDS: FENTANYL PF 100 MCG/2ML IVPush PRN ×4 (00:31→03:22)
[2018-03-08] MEDS: LACTATED RINGERS 1,000 ML IV SCH ×2 (00:33→04:29)
[2018-03-08 00:46] LABS: BASOPHILS # (AUTO) 0.05 x10^3/uL (0-0.1); BASOPHILS % (AUTO) 1 % (0-1); EOSINOPHILS # (AUTO) 0.12 x10^3/uL (0-0.4); EOSINOPHILS % (AUTO) 1 % (1-7); LYMPHOCYTES # (AUTO) 1.89 x10^3/uL (1-3.4); LYMPHOCYTES % (AUTO) 21 % (22-44); MD NO; MEAN CORPUSCULAR HEMOGLOBIN 25.3 pg (27.0-34.8); MEAN CORPUSCULAR HGB CONC 32.9 g/dL (32.4-35.8); MEAN PLATELET VOLUME 9.1 fL (7.4-10.4); MONOCYTES # (AUTO) 0.76 x10^3/uL (0.2-0.8); MONOCYTES % (AUTO) 8 % (2-9); NEUTROPHILS # (AUTO) 6.39 x10^3/uL (1.8-6.8); NEUTROPHILS % (AUTO) 69 % (42-75); PLATELET COUNT 229 x10^3/uL (130-400); RED CELL DISTRIBUTION WIDTH 17.4 % (9.6-15.2)
[2018-03-08] MEDS: OXYTOCIN 30U/ 0.9% NaCL 500ML 500 ML IV SCH ×2 (02:58→22:58)
[2018-03-08] MEDS ORDERED: DOCUSATE 100 MG CAPSULE PO PRN (03:00)
[2018-03-08] MEDS ORDERED: OXYcodone IR 5MG TABLET PO PRN (03:00)
[2018-03-08] MEDS ORDERED: METOCLOPRAMIDE 5 MG/ML, 2ML IV PRN (03:00)
[2018-03-08] MEDS ORDERED: ONDANSETRON 2MG/ML, 2ML IV PRN (03:00)
[2018-03-08] MEDS ORDERED: METHYLERGONOVINE 0.2 MG/ML IM PRN (03:00)
[2018-03-08] MEDS ORDERED: CARBOPROST TROMETHAMINE 250 MCG/ML, 1ML IM PRN (03:00)
[2018-03-08] MEDS ORDERED: MISOPROSTOL 200 MCG TABLET PR PRN (03:00)
[2018-03-08] MEDS ORDERED: BISACODYL 10 MG SUPP PR PRN (03:00)
[2018-03-08] MEDS ORDERED: GLYCERIN ADULT SUPP PR PRN (03:00)
[2018-03-08] MEDS ORDERED: ACETAMINOPHEN 325 MG TABLET PO PRN ×2 (03:00)
[2018-03-08] MEDS ORDERED: IBUPROFEN 600 MG TABLET ONE (05:05)
[2018-03-08] MEDS ORDERED: OXYcodone/APAP 5/325MG TABLET ONE (05:06)
[2018-03-08] MEDS: OXYcodone/APAP 5/325MG TABLET PO PRN ×2 (05:09→15:02)
[2018-03-08] MEDS: IBUPROFEN 600 MG TABLET PO PRN ×2 (05:10→15:02)
[2018-03-08 06:55] VITALS: BP 99/64
[2018-03-08] MEDS ORDERED: PRENATAL VIT/IRON/FA 1 EACH TABLET PO SCH (09:00)
[2018-03-08 12:50] VITALS: BP 102/66
[2018-03-08 13:41] LABS: MEAN CORPUSCULAR HEMOGLOBIN 25.3 pg (27.0-34.8); MEAN CORPUSCULAR HGB CONC 32.9 g/dL (32.4-35.8); MEAN CORPUSCULAR VOLUME 77.1 fL (80-100); MEAN PLATELET VOLUME 9.9 fL (7.4-10.4); PLATELET COUNT 220 x10^3/uL (130-400); RED BLOOD COUNT 3.89 x10^6/uL (3.82-5.3); RED CELL DISTRIBUTION WIDTH 17.3 % (9.6-15.2)
[2018-03-08 13:59] LABS: BASOPHILS # (AUTO) 0.03 x10^3/uL (0-0.1); BASOPHILS % (AUTO) 0 % (0-1); EOSINOPHILS # (AUTO) 0.23 x10^3/uL (0-0.4); EOSINOPHILS % (AUTO) 2 % (1-7); LYMPHOCYTES # (AUTO) 1.35 x10^3/uL (1-3.4); LYMPHOCYTES % (AUTO) 12 % (22-44); MD SCAN; MONOCYTES # (AUTO) 0.82 x10^3/uL (0.2-0.8); MONOCYTES % (AUTO) 7 % (2-9); NEUTROPHILS # (AUTO) 8.83 x10^3/uL (1.8-6.8); NEUTROPHILS % (AUTO) 79 % (42-75)
[2018-03-08 15:02] VITALS: BP 91/61
[2018-03-08 19:38] VITALS: BP 116/73
[2018-03-09 01:55] VITALS: BP 102/69
[2018-03-09 04:55] VITALS: BP 104/68
[2018-03-09] MEDS ORDERED: DOCU-131 PO (07:05)
[2018-03-09] MEDS ORDERED: IBUP-1222 PO (07:05)
[2018-03-09 09:25] VITALS: BP 113/75
== END 2018-03-09 12:35 | disposition home or self-care (01) | DRG 807 ==
LOC: LDOP 23:50 → LDIP 03-08 00:20 → 2NW 03-08 06:01
PROVIDERS: ADMIT Obstetrics & Gynecology; ATTEND Obstetrics & Gynecology
PROC: 10907ZC Drainage of Amniotic Fluid, Therapeutic from Products of Conception, Via Natural or Artificial Opening (ICD-10-PCS; principal; 2018-03-08)
PROC: 10E0XZZ Delivery of Products of Conception, External Approach (ICD-10-PCS; 2018-03-08)
DX: O99.02 Anemia complicating childbirth (principal); Z37.0 Single live birth; D50.9 Iron deficiency anemia, unspecified; Z3A.40 40 weeks gestation of pregnancy; Z87.440 Personal history of urinary (tract) infections; Z87.442 Personal history of urinary calculi
CPT/HCPCS: 36415; 85025; 86850; 86900; G0378; J3010; J2590; J7120

== ENCOUNTER 2019-02-04 16:37 | Inpatient (IN) | payer BC, MEDICAID ==
[~2019-02-04] VITALS: Ht 160 cm; Wt 110.4 kg
[~2019-02-04 16:37] MED LIST changes: +DOCU-131 PO; +IBUP-1222 PO
[2019-02-04 17:53] LABS: BASOPHILS # (AUTO) 0.04 x10^3/uL (0-0.1); BASOPHILS % (AUTO) 0 % (0-1); EOSINOPHILS % (AUTO) 2 % (1-7); LYMPHOCYTES # (AUTO) 1.78 x10^3/uL (1-3.4); LYMPHOCYTES % (AUTO) 21 % (22-44); MD NO; MEAN CORPUSCULAR HEMOGLOBIN 25.8 pg (27.0-34.8); MEAN CORPUSCULAR VOLUME 80.6 fL (80-100); MEAN PLATELET VOLUME 8.8 fL (7.4-10.4); MONOCYTES # (AUTO) 0.49 x10^3/uL (0.2-0.8); MONOCYTES % (AUTO) 6 % (2-9); NEUTROPHILS # (AUTO) 5.87 x10^3/uL (1.8-6.8); NEUTROPHILS % (AUTO) 70 % (42-75); PLATELET COUNT 325 x10^3/uL (130-400); RED BLOOD COUNT 4.66 x10^6/uL (3.82-5.3); RED CELL DISTRIBUTION WIDTH 15.3 % (9.6-15.2)
--- NOTE | 2019-02-04 17:57 | NUR ---
PT HERE FOR RIGHT SIDED FLANK PAIN X 2 DAYS. PT REPORTS THIS MORNING IT WAS EXCURUCIATING AND UNABLE TO TOLERATE AT THIS TIME. PT DENIES TRUAMA. PT REPORTS NO PAINFUL URNIATION BUT SOME INCREASED FREQUENCY. PT IN BED AWAITING MD ROBERTO. UA COLLECTED AND SENT TO LAB.
--- NOTE | 2019-02-04 17:57 | NUR ---
PT TO ROOM
[2019-02-04 18:01] LABS: ALBUMIN 3.6 g/dL (3.4-5.0); ANION GAP 5 mmol/L (5-15); CALCIUM 8.8 mg/dL (8.5-10.1); CHLORIDE 109 mmol/L (98-107)
[2019-02-04 18:08] LABS: MICROSCOPIC AUTO
[2019-02-04 18:09] LABS: CULTURE INDICATED? YES
[2019-02-04 18:09] LABS: ALANINE AMINOTRANSFERASE 29 U/L (12-78); ALKALINE PHOSPHATASE 88 U/L (45-117); BILIRUBIN,TOTAL 0.6 mg/dL (0.2-1.0); CREATININE 0.63 mg/dL (0.55-1.02); TOTAL PROTEIN 7.9 g/dL (6.4-8.2)
[2019-02-04] MEDS ORDERED: ONDANSETRON 2MG/ML, 2ML ONE ×2 (18:12→21:35)
[2019-02-04] MEDS ORDERED: KETOROLAC 30 MG/1 ML ONE ×2 (18:12→21:08)
[2019-02-04] MEDS ORDERED: MORPHINE SULFATE 4 MG/ML, 1ML ONE (18:13)
--- NOTE | 2019-02-04 18:21 | NUR ---
PT MEDICATED FOR PAIN
[2019-02-04] MEDS ORDERED: KETOROLAC 30 MG/1 ML IVPush ONE (18:30)
[2019-02-04] MEDS ORDERED: ONDANSETRON 2MG/ML, 2ML IVPush ONE (18:30)
[2019-02-04] MEDS ORDERED: SODIUM CHLORIDE FLUSH 10ML SYR IVF ONE (18:30)
[2019-02-04] MEDS ORDERED: MORPHINE SULFATE 4 MG/ML, 1ML IVPush PRN (18:30)
--- NOTE | 2019-02-04 18:38 | NUR ---
BREAK RN: PT RESTING IN ROOM. PULSE OX ON. NO ACUTE DISTRESS NOTED. VS STABLE. CALL LIGHT IN PLACE. WILL CONTINUE TO MONITOR WHILE PRIMARY RN IS ON BREAK.
[2019-02-04] MEDS ORDERED: CEFTRIAXONE PMX 1GM/50ML 50 ML IV ONE (19:00)
[2019-02-04] MEDS ORDERED: CEFTRIAXONE PMX 1GM/50ML 50 ML ONE (19:15)
--- NOTE | 2019-02-04 19:25 | NUR ---
PT MEDICATED PER EMAR.
--- NOTE | 2019-02-04 19:39 | NUR ---
REPORT TO MAKI LEAD MAN OVER ALL DIES IN PATTERN SHOP
[2019-02-04] MEDS ORDERED: FENTANYL PF 100 MCG/2ML ONE (20:44)
[2019-02-04] MEDS ORDERED: MIDAZOLAM 1 MG/ML, 2ML ONE (20:45)
[2019-02-04] MEDS ORDERED: LIDOCAINE-MPF 2% ,5ML ONE (20:47)
[2019-02-04] MEDS ORDERED: LIDOCAINE GEL 2%, 5ML ONE (20:47)
[2019-02-04] MEDS ORDERED: PROPOFOL 10 MG/ML, 20ML ONE (20:48)
[2019-02-04] MEDS ORDERED: SUCCINYLCHOLINE 20 MG/ML, 10ML ONE (20:48)
[2019-02-04] MEDS ORDERED: DEXAMETHASONE 4 MG/ML, 1ML ONE ×2 (21:08)
[2019-02-04] MEDS ORDERED: HYDROmorphone 2 MG/ML, 1ML IVPush PRN (22:00)
[2019-02-04] MEDS ORDERED: ONDANSETRON 2MG/ML, 2ML IV PRN ×2 (22:00→23:00)
[2019-02-04] MEDS ORDERED: LABETALOL 5MG/ML, 20ML IV PRN (22:00)
[2019-02-04] MEDS ORDERED: ACETAMINOPHEN 325 MG TABLET PO PRN ×2 (22:00→23:30)
[2019-02-04] MEDS ORDERED: MEPERIDINE/PF 25MG/ML,1ML IVPush PRN (22:00)
[2019-02-04] MEDS ORDERED: HYDROcodone/APAP 7.5-325MG/15ML UDC PO PRN (22:00)
[2019-02-04] MEDS ORDERED: hydrALAzine 20 MG/ML, 1ML IV PRN (22:00)
[2019-02-04] MEDS ORDERED: FENTANYL PF 100 MCG/2ML IV PRN (22:00)
[2019-02-04] MEDS ORDERED: PROMETHAZINE 25 MG/ML, 1ML IV PRN (22:00)
[2019-02-04] MEDS ORDERED: EPHEDRINE 50 MG/ML, 1ML IVPush PRN (22:00)
[2019-02-04] MEDS ORDERED: PROMETHAZINE 25 MG/ML, 1ML ONE (22:03)
[2019-02-04 22:30] VITALS: BP 120/74
[2019-02-04] MEDS ORDERED: MORPHINE SULFATE 4 MG/ML, 1ML IV PRN (23:00)
[2019-02-05] MEDS: D5%-0.45% NACL 1,000 ML IV SCH ×2 (00:03→09:42)
[2019-02-05 01:15] VITALS: BP 132/71
[2019-02-05 03:22] VITALS: BP 120/73
[2019-02-05] MEDS: OXYcodone IR 5MG TABLET PO PRN ×2 (03:54→12:22)
[2019-02-05 04:25] LABS: BASOPHILS # (AUTO) 0.02 x10^3/uL (0-0.1); BASOPHILS % (AUTO) 0 % (0-1); EOSINOPHILS # (AUTO) 0.02 x10^3/uL (0-0.4); EOSINOPHILS % (AUTO) 0 % (1-7); LYMPHOCYTES # (AUTO) 0.69 x10^3/uL (1-3.4); LYMPHOCYTES % (AUTO) 8 % (22-44); MD NO; MEAN CORPUSCULAR HEMOGLOBIN 26.1 pg (27.0-34.8); MEAN CORPUSCULAR HGB CONC 32.1 g/dL (32.4-35.8); MEAN CORPUSCULAR VOLUME 81.3 fL (80-100); MEAN PLATELET VOLUME 8.6 fL (7.4-10.4); MONOCYTES # (AUTO) 0.09 x10^3/uL (0.2-0.8); MONOCYTES % (AUTO) 1 % (2-9); NEUTROPHILS # (AUTO) 7.45 x10^3/uL (1.8-6.8); NEUTROPHILS % (AUTO) 90 % (42-75); PLATELET COUNT 315 x10^3/uL (130-400); RED BLOOD COUNT 4.62 x10^6/uL (3.82-5.3); RED CELL DISTRIBUTION WIDTH 15.2 % (9.6-15.2)
[2019-02-05 04:37] LABS: ANION GAP 6 mmol/L (5-15); CALCIUM 8.5 mg/dL (8.5-10.1); CHLORIDE 109 mmol/L (98-107); CREATININE 0.81 mg/dL (0.55-1.02)
[2019-02-05 07:12] VITALS: BP 107/71
[2019-02-05] MEDS ORDERED: CIPR500T87 PO (14:16)
[2019-02-05] MEDS ORDERED: CEFTRIAXONE PMX 1GM/50ML 50 ML IV SCH (19:00)
== END 2019-02-05 14:30 | disposition home or self-care (01) | DRG 661 ==
LOC: ED 19:38 → 4NW 22:25 → ED 22:43 → 4NW 22:44 → DCLOUNGE 02-05 14:07
PROVIDERS: ADMIT Urology; ATTEND Urology
PROC: 0TC68ZZ Extirpation of Matter from Right Ureter, Via Natural or Artificial Opening Endoscopic (ICD-10-PCS; 2019-02-04)
PROC: 0T768DZ Dilation of Right Ureter with Intraluminal Device, Via Natural or Artificial Opening Endoscopic (ICD-10-PCS; principal; 2019-02-04 22:15)
DX: N13.6 Pyonephrosis (principal); Z90.49 Acquired absence of other specified parts of digestive tract
CPT/HCPCS: 36415; J3490; 74176; 80048; 80053; 81001; 82360; 84703; 85025; 87077; 87086; 87186; 88300; 99285; C1726; G0378; J0696; J1100; J1885; J2250; J2405; J2550; J2704; J3010; C1758; C2617; J0330; J2270

== ENCOUNTER 2019-02-09 03:19 | Emergency (ER) | payer MEDICAID ==
[~2019-02-09] VITALS: Ht 160 cm; Wt 109.2 kg
[2019-02-09] MEDS ORDERED: ONDANSETRON 2MG/ML, 2ML ONE (03:45)
[2019-02-09] MEDS ORDERED: MORPHINE SULFATE 4 MG/ML, 1ML ONE (03:46)
[2019-02-09] MEDS ORDERED: MORPHINE SULFATE 4 MG/ML, 1ML IVPush PRN (04:00)
[2019-02-09] MEDS ORDERED: ONDANSETRON 2MG/ML, 2ML IVPush ONE (04:00)
[2019-02-09] MEDS ORDERED: SODIUM CHLORIDE FLUSH 10ML SYR IVF ONE (04:00)
[2019-02-09 04:22] LABS: BASOPHILS # (AUTO) 0.06 x10^3/uL (0-0.1); BASOPHILS % (AUTO) 0 % (0-1); EOSINOPHILS # (AUTO) 0.26 x10^3/uL (0-0.4); EOSINOPHILS % (AUTO) 2 % (1-7); LYMPHOCYTES # (AUTO) 2.23 x10^3/uL (1-3.4); LYMPHOCYTES % (AUTO) 18 % (22-44); MD NO; MEAN CORPUSCULAR HEMOGLOBIN 25.6 pg (27.0-34.8); MEAN CORPUSCULAR HGB CONC 32.2 g/dL (32.4-35.8); MEAN CORPUSCULAR VOLUME 79.6 fL (80-100); MEAN PLATELET VOLUME 8.5 fL (7.4-10.4); MONOCYTES % (AUTO) 7 % (2-9); NEUTROPHILS # (AUTO) 9.04 x10^3/uL (1.8-6.8); NEUTROPHILS % (AUTO) 73 % (42-75); PLATELET COUNT 330 x10^3/uL (130-400); RED CELL DISTRIBUTION WIDTH 15.1 % (9.6-15.2)
[2019-02-09 04:33] LABS: ALANINE AMINOTRANSFERASE 35 U/L (12-78); ALBUMIN 3.3 g/dL (3.4-5.0); ANION GAP 4 mmol/L (5-15); CALCIUM 8.8 mg/dL (8.5-10.1); CHLORIDE 109 mmol/L (98-107); CREATININE 0.72 mg/dL (0.55-1.02)
[2019-02-09 04:36] LABS: MICROSCOPIC AUTO
[2019-02-09 04:37] LABS: CULTURE INDICATED? YES
[2019-02-09 04:37] LABS: ALKALINE PHOSPHATASE 93 U/L (45-117); BILIRUBIN,TOTAL 0.8 mg/dL (0.2-1.0); TOTAL PROTEIN 7.5 g/dL (6.4-8.2)
[2019-02-09 05:08] LABS: CULTURE INDICATED? YES; MICROSCOPIC INDICATED
[2019-02-09 06:03] VITALS: BP 135/74
== END 2019-02-09 06:06 | disposition home or self-care (01) ==
LOC: ED 04:01
DX: N39.0 Urinary tract infection, site not specified (principal); R10.31 Right lower quadrant pain; R10.32 Left lower quadrant pain; Z90.49 Acquired absence of other specified parts of digestive tract
CPT/HCPCS: 36415; 80053; 81001; 84703; 85025; 87086; 96374; 96375; 99283; J2270; J2405

== ENCOUNTER 2019-02-20 21:39 | Inpatient (IN) | payer MEDICAID ==
[~2019-02-20] VITALS: Ht 160 cm; Wt 108.7 kg
[2019-02-20 23:26] LABS: MICROSCOPIC AUTO
[2019-02-20 23:29] LABS: CULTURE INDICATED? YES
--- NOTE | 2019-02-20 23:33 | NUR ---
PT. TO ROOM FROM LOBBY.
[2019-02-21] MEDS ORDERED: ONDANSETRON 2MG/ML, 2ML IVPush ONE
[2019-02-21] MEDS ORDERED: SODIUM CHLORIDE FLUSH 10ML SYR IVF ONE
[2019-02-21] MEDS ORDERED: ONDANSETRON 2MG/ML, 2ML ONE ×2 (00:02→06:07)
[2019-02-21] MEDS ORDERED: MORPHINE SULFATE 4 MG/ML, 1ML ONE ×2 (00:03→02:45)
[2019-02-21] MEDS: MORPHINE SULFATE 4 MG/ML, 1ML IVPush PRN ×2 (00:15→02:48)
--- NOTE | 2019-02-21 00:17 | NUR ---
PT. TO ED WITH C/O RIGHT FLANK PAIN AND N/V X 3 DAYS. HX OF KIDNEY STONES WITH "SURGERY FOR THEM" IN THE PAST. IV STARTED, MEDICATED PER MAY. MONITORS WERE PLACED BY TECH UPON ENTERING ROOM. VSS. LIGHTS DIMMED FOR COMFORT. LABS AND UA WERE DONE ALREADY. AWAITING CT.
[2019-02-21 00:26] LABS: BASOPHILS # (AUTO) 0.06 x10^3/uL (0-0.1); BASOPHILS % (AUTO) 1 % (0-1); EOSINOPHILS # (AUTO) 0.34 x10^3/uL (0-0.4); EOSINOPHILS % (AUTO) 3 % (1-7); LYMPHOCYTES # (AUTO) 3.09 x10^3/uL (1-3.4); LYMPHOCYTES % (AUTO) 26 % (22-44); MD NO; MEAN CORPUSCULAR HEMOGLOBIN 25.7 pg (27.0-34.8); MEAN CORPUSCULAR VOLUME 80.4 fL (80-100); MEAN PLATELET VOLUME 9.5 fL (7.4-10.4); MONOCYTES # (AUTO) 0.77 x10^3/uL (0.2-0.8); MONOCYTES % (AUTO) 7 % (2-9); NEUTROPHILS # (AUTO) 7.56 x10^3/uL (1.8-6.8); NEUTROPHILS % (AUTO) 64 % (42-75); PLATELET COUNT 303 x10^3/uL (130-400); RED BLOOD COUNT 4.58 x10^6/uL (3.82-5.3); RED CELL DISTRIBUTION WIDTH 15.7 % (9.6-15.2)
[2019-02-21 00:27] LABS: ALANINE AMINOTRANSFERASE 23 U/L (12-78); ALBUMIN 3.3 g/dL (3.4-5.0); ANION GAP 6 mmol/L (5-15); CHLORIDE 109 mmol/L (98-107); CREATININE 0.69 mg/dL (0.55-1.02)
[2019-02-21 00:31] LABS: ALKALINE PHOSPHATASE 86 U/L (45-117); BILIRUBIN,TOTAL 0.3 mg/dL (0.2-1.0); TOTAL PROTEIN 7.4 g/dL (6.4-8.2)
--- NOTE | 2019-02-21 01:02 | NUR ---
PT. WAS RESTING ON [employer] WITH EYES CLOSED AND EVEN, NON-LABORED RESPIRATIONS. PT. WOKE FOR CT; REPORTS PAIN DONW TO 5/10 AFTER MEDS[address] VIA [employer] NOW.
--- NOTE | 2019-02-21 02:13 | NUR ---
DR. MARIE IN TO DISCUSS ED FINDINGS WITH PT.
[2019-02-21] MEDS ORDERED: MORPHINE SULFATE 4 MG/ML, 1ML IVPush PRN (02:30)
[2019-02-21] MEDS ORDERED: KETOROLAC 30 MG/1 ML IVPush ONE (02:30)
[2019-02-21] MEDS ORDERED: PROMETHAZINE 25 MG/ML, 1ML IM ONE (02:30)
[2019-02-21] MEDS ORDERED: PROMETHAZINE 25 MG/ML, 1ML ONE (02:44)
[2019-02-21] MEDS ORDERED: KETOROLAC 30 MG/1 ML ONE (02:44)
[2019-02-21] MEDS ORDERED: CEFTRIAXONE PMX 1GM/50ML 50 ML IV ONE ×2 (03:30→04:00)
--- NOTE | 2019-02-21 03:32 | NUR ---
PT. UPDATED ON PLAN FOR ADMISSION.
--- NOTE | 2019-02-21 03:36 | NUR ---
[facility] IN TO EVAL PT. FOR ADMISSION. REPORT TO HENRRY NI.
[2019-02-21] MEDS ORDERED: CEFTRIAXONE PMX 1GM/50ML 50 ML ONE (03:42)
--- NOTE | 2019-02-21 03:44 | NUR ---
PER DR. MARIE NO BLOOD CULTURES NEEDED PRIOR TO IV ABX. PT. REPORTS NO HOME MEDS.
[2019-02-21] MEDS ORDERED: POLYETHYLENE GLYCOL 17 GM PACKET PO PRN (04:00)
[2019-02-21] MEDS ORDERED: morphine SULFATE 10 MG/ML, 1ML IVPush PRN (04:00)
[2019-02-21] MEDS ORDERED: PROMETHAZINE 25 MG/ML, 1ML IM PRN (04:00)
[2019-02-21] MEDS ORDERED: BISACODYL 10 MG SUPP PR PRN (04:00)
[2019-02-21] MEDS ORDERED: ONDANSETRON ODT 4 MG PO PRN (04:00)
[2019-02-21] MEDS ORDERED: DOCUSATE 100 MG CAPSULE PO PRN (04:00)
[2019-02-21] MEDS ORDERED: hydrALAzine 20 MG/ML, 1ML IVPush PRN (04:00)
[2019-02-21] MEDS ORDERED: OXYcodone IR 5MG TABLET PO PRN (04:00)
[2019-02-21] MEDS ORDERED: ONDANSETRON 2MG/ML, 2ML IVPush PRN (04:00)
[2019-02-21 04:17] VITALS: BP 122/77
[2019-02-21] MEDS: SODIUM CHLORIDE 0.9% 1,000 ML IV SCH ×3 (04:33→17:23)
[2019-02-21] MEDS ORDERED: MIDAZOLAM 1 MG/ML, 2ML ONE (05:44)
[2019-02-21] MEDS ORDERED: SUCCINYLCHOLINE 20 MG/ML, 10ML ONE (05:45)
[2019-02-21] MEDS ORDERED: PROPOFOL 10 MG/ML, 20ML ONE (05:45)
[2019-02-21] MEDS ORDERED: FENTANYL PF 250 MCG/5ML ONE (05:45)
[2019-02-21] MEDS ORDERED: ROCURONIUM 10MG/ML,5ML ONE (05:45)
[2019-02-21 05:54] LABS: HCG UR SG 1.026 (1.003-1.030)
[2019-02-21] MEDS ORDERED: hydrALAzine 20 MG/ML, 1ML IV PRN (06:00)
[2019-02-21] MEDS ORDERED: FENTANYL PF 100 MCG/2ML IV PRN (06:00)
[2019-02-21] MEDS ORDERED: PROMETHAZINE 25 MG/ML, 1ML IV PRN (06:00)
[2019-02-21] MEDS ORDERED: LABETALOL 5MG/ML, 20ML IV PRN (06:00)
[2019-02-21] MEDS ORDERED: MEPERIDINE/PF 25MG/ML,1ML IVPush PRN (06:00)
[2019-02-21] MEDS ORDERED: HYDROmorphone 2 MG/ML, 1ML IVPush PRN (06:00)
[2019-02-21] MEDS ORDERED: ACETAMINOPHEN 325 MG TABLET PO PRN (06:00)
[2019-02-21] MEDS ORDERED: ONDANSETRON 2MG/ML, 2ML IV PRN (06:00)
[2019-02-21] MEDS ORDERED: OXYcodone 5 MG/5 ML ORAL.SOL UDC PO PRN (06:00)
[2019-02-21] MEDS ORDERED: DEXAMETHASONE 4 MG/ML, 1ML ONE (06:07)
[2019-02-21 06:15] LABS: HEMOGLOBIN A1C 5.3 % (4.2-6.3)
[2019-02-21 06:20] LABS: FREE T4 (FREE THYROXINE) 1.06 ng/dL (0.76-1.46)
[2019-02-21 08:20] VITALS: BP 117/80
[2019-02-21 12:09] VITALS: BP 101/65
[2019-02-21 20:22] VITALS: BP 104/64
[2019-02-22] MEDS: SODIUM CHLORIDE 0.9% 1,000 ML IV SCH ×2 (03:35→03:46)
[2019-02-22 03:56] VITALS: BP 116/74
[2019-02-22 06:05] LABS: BASOPHILS # (AUTO) 0.03 x10^3/uL (0-0.1); BASOPHILS % (AUTO) 0 % (0-1); EOSINOPHILS # (AUTO) 0.12 x10^3/uL (0-0.4); EOSINOPHILS % (AUTO) 1 % (1-7); LYMPHOCYTES # (AUTO) 1.66 x10^3/uL (1-3.4); LYMPHOCYTES % (AUTO) 18 % (22-44); MD NO; MEAN CORPUSCULAR HEMOGLOBIN 25.9 pg (27.0-34.8); MEAN CORPUSCULAR HGB CONC 32.1 g/dL (32.4-35.8); MEAN CORPUSCULAR VOLUME 80.7 fL (80-100); MEAN PLATELET VOLUME 9.3 fL (7.4-10.4); MONOCYTES % (AUTO) 5 % (2-9); NEUTROPHILS # (AUTO) 6.95 x10^3/uL (1.8-6.8); NEUTROPHILS % (AUTO) 75 % (42-75); PLATELET COUNT 278 x10^3/uL (130-400); RED BLOOD COUNT 4.19 x10^6/uL (3.82-5.3); RED CELL DISTRIBUTION WIDTH 15.1 % (9.6-15.2)
[2019-02-22 06:15] LABS: ALBUMIN 2.9 g/dL (3.4-5.0); CALCIUM 8.5 mg/dL (8.5-10.1); CHLORIDE 114 mmol/L (98-107)
[2019-02-22 06:24] LABS: ALANINE AMINOTRANSFERASE 31 U/L (12-78); ALKALINE PHOSPHATASE 71 U/L (45-117); ANION GAP 6 mmol/L (5-15); BILIRUBIN,TOTAL 0.4 mg/dL (0.2-1.0); CHOL/HDL RATIO 4.4; CHOLESTEROL, TOTAL 163 mg/dL (140-239); CREATININE 0.59 mg/dL (0.55-1.02); HDL CHOL % 23 % (28-40); HDL CHOLESTEROL (DIRECT) 37 mg/dL (40-60); LDL CHOLESTEROL,CALCULATED 97 mg/dL (54-169); LDL/HDL RATIO 2.6 (0.5-3.0); TOTAL PROTEIN 6.3 g/dL (6.4-8.2); TRIGLYCERIDES 144 mg/dL (50-200); VLDL CHOLESTEROL 29 mg/dL (0-25)
[2019-02-22 07:56] VITALS: BP 102/66
[2019-02-22 13:58] VITALS: BP 104/60
[2019-02-22 20:19] VITALS: BP 121/83
[2019-02-22] MEDS ORDERED: CEFTRIAXONE PMX 2GM/50ML 50 ML IV SCH (23:34)
[2019-02-23] MEDS: CEFTRIAXONE PMX 2GM/50ML 50 ML IV SCH ×2 (00:33→23:31)
[2019-02-23 00:45] VITALS: BP 105/65
[2019-02-23] MEDS ORDERED: CEFTRIAXONE PMX 2GM/50ML 50 ML IV SCH (02:00)
[2019-02-23 07:12] LABS: BASOPHILS # (AUTO) 0.04 x10^3/uL (0-0.1); BASOPHILS % (AUTO) 1 % (0-1); EOSINOPHILS # (AUTO) 0.16 x10^3/uL (0-0.4); EOSINOPHILS % (AUTO) 2 % (1-7); LYMPHOCYTES # (AUTO) 2.67 x10^3/uL (1-3.4); LYMPHOCYTES % (AUTO) 31 % (22-44); MD NO; MEAN CORPUSCULAR HEMOGLOBIN 25.5 pg (27.0-34.8); MEAN CORPUSCULAR HGB CONC 32.1 g/dL (32.4-35.8); MEAN CORPUSCULAR VOLUME 79.4 fL (80-100); MEAN PLATELET VOLUME 8.7 fL (7.4-10.4); MONOCYTES # (AUTO) 0.55 x10^3/uL (0.2-0.8); MONOCYTES % (AUTO) 7 % (2-9); NEUTROPHILS # (AUTO) 5.08 x10^3/uL (1.8-6.8); NEUTROPHILS % (AUTO) 60 % (42-75); PLATELET COUNT 268 x10^3/uL (130-400); RED BLOOD COUNT 4.43 x10^6/uL (3.82-5.3); RED CELL DISTRIBUTION WIDTH 15.3 % (9.6-15.2)
[2019-02-23 07:18] LABS: ANION GAP 6 mmol/L (5-15); CALCIUM 8.3 mg/dL (8.5-10.1); CHLORIDE 110 mmol/L (98-107)
[2019-02-23 07:19] LABS: CREATININE 0.65 mg/dL (0.55-1.02)
[2019-02-23 07:55] VITALS: BP 103/69
[2019-02-23] MEDS ORDERED: morphine SULFATE 10 MG/ML, 1ML IVPush PRN (10:00)
[2019-02-23 12:38] VITALS: BP 104/67
[2019-02-23] MEDS: ACETAMINOPHEN 325 MG TABLET PO PRN (16:31)
[2019-02-23 19:21] VITALS: BP 110/71
[2019-02-24 02:06] VITALS: BP 124/85
[2019-02-24] MEDS ORDERED: CEFTRIAXONE PMX 2GM/50ML 50 ML IV SCH (06:00)
[2019-02-24] MEDS ORDERED: CEFD300C37 PO (06:03)
[2019-02-24 06:14] LABS: BASOPHILS # (AUTO) 0.06 x10^3/uL (0-0.1); BASOPHILS % (AUTO) 1 % (0-1); EOSINOPHILS # (AUTO) 0.23 x10^3/uL (0-0.4); EOSINOPHILS % (AUTO) 3 % (1-7); LYMPHOCYTES # (AUTO) 2.39 x10^3/uL (1-3.4); LYMPHOCYTES % (AUTO) 27 % (22-44); MD NO; MEAN CORPUSCULAR HEMOGLOBIN 25.8 pg (27.0-34.8); MEAN CORPUSCULAR HGB CONC 31.8 g/dL (32.4-35.8); MEAN CORPUSCULAR VOLUME 80.9 fL (80-100); MEAN PLATELET VOLUME 9.1 fL (7.4-10.4); MONOCYTES # (AUTO) 0.59 x10^3/uL (0.2-0.8); MONOCYTES % (AUTO) 7 % (2-9); NEUTROPHILS # (AUTO) 5.67 x10^3/uL (1.8-6.8); NEUTROPHILS % (AUTO) 63 % (42-75); PLATELET COUNT 288 x10^3/uL (130-400); RED BLOOD COUNT 4.79 x10^6/uL (3.82-5.3); RED CELL DISTRIBUTION WIDTH 14.9 % (9.6-15.2)
[2019-02-24 06:27] LABS: ANION GAP 6 mmol/L (5-15); CALCIUM 8.7 mg/dL (8.5-10.1); CHLORIDE 109 mmol/L (98-107)
[2019-02-24 06:28] LABS: CREATININE 0.63 mg/dL (0.55-1.02)
[2019-02-24 06:47] VITALS: BP 102/69
[2019-02-24] MEDS: ACETAMINOPHEN 325 MG TABLET PO PRN (07:56)
[2019-02-24 13:27] VITALS: BP 107/73
== END 2019-02-24 14:00 | disposition home or self-care (01) | DRG 699 ==
LOC: ED 23:59 → EDIP 02-21 03:16 → 3N 02-21 03:55 → DCLOUNGE 02-24 13:50
PROVIDERS: ADMIT Internal Medicine; ATTEND Hospitalist
PROC: 0TF38ZZ Fragmentation in Right Kidney Pelvis, Via Natural or Artificial Opening Endoscopic (ICD-10-PCS; 2019-02-21)
PROC: 0TP98DZ Removal of Intraluminal Device from Ureter, Via Natural or Artificial Opening Endoscopic (ICD-10-PCS; principal; 2019-02-21 05:00)
DX: T83.89XA Other specified complication of genitourinary prosthetic devices, implants and grafts, initial encounter (principal); N13.6 Pyonephrosis; Z68.42 Body mass index [BMI] 45.0-49.9, adult; Y83.8 Other surgical procedures as the cause of abnormal reaction of the patient, or of later complication, without mention of misadventure at the time of the procedure; Y92.89 Other specified places as the place of occurrence of the external cause; E66.9 Obesity, unspecified; E03.9 Hypothyroidism, unspecified; Z90.49 Acquired absence of other specified parts of digestive tract
CPT/HCPCS: 36415; 74018; 74176; 76000; 80048; 80053; 80061; 81001; 81025; 83036; 83735; 84100; 84439; 84443; 84702; 84703; 85025; 87040; 87086; 96372; 96374; 96375; 96376; G0378; J0696; J1100; J1885; J2250; J2405; J2550; J2704; J3010; C1758; C1769; J0330; J2270; J7030

== ENCOUNTER 2020-12-01 09:33 | Emergency (ER) | payer MEDICAID ==
[~2020-12-01] VITALS: Ht 160 cm; Wt 113.2 kg
[~2020-12-01 09:33] MED LIST changes: -OXYC-302 PO; +OXYC1TAB12 PO
--- NOTE | 2020-12-01 10:18 | NUR ---
PATIENT WALKED BACK FROM LOBBY WITH CHIEF C/O OF RLQ PAIN X3 DAYS. PATIENT REPORTS PAIN RADIATES TO RIGHT LOWER BACK, AND REPORTS PAINFUL URINATION. NADN, CONNECTED TO MONITOR, VSS, CALL LIGHT WITHIN REACH. URINE SAMPLE COLLECTED AND SENT TO LAB.
[2020-12-01 10:33] LABS: MICROSCOPIC AUTO
[2020-12-01] MEDS ORDERED: ONDANSETRON 2MG/ML, 2ML ONE (10:57)
[2020-12-01] MEDS ORDERED: KETOROLAC 30 MG/1 ML ONE (10:57)
[2020-12-01] MEDS ORDERED: SODIUM CHLORIDE 0.9% 1,000ML IV ONE (11:00)
[2020-12-01] MEDS ORDERED: MORPHINE SULFATE 4 MG/ML, 1ML IVPush PRN (11:00)
[2020-12-01] MEDS ORDERED: ONDANSETRON 2MG/ML, 2ML IVPush ONE (11:00)
[2020-12-01] MEDS ORDERED: KETOROLAC 30 MG/1 ML IVPush ONE (11:00)
[2020-12-01 11:05] LABS: BASOPHILS % (AUTO) 1 % (0-1); EOSINOPHILS % (AUTO) 2 % (1-7); LYMPHOCYTES % (AUTO) 20 % (22-44); MEAN CORPUSCULAR HEMOGLOBIN 26.5 pg (27.0-34.8); MEAN PLATELET VOLUME 8.7 fL (7.4-10.4); MONOCYTES % (AUTO) 6 % (2-9); NEUTROPHILS % (AUTO) 72 % (42-75); PLATELET COUNT 271 x10^3/uL (130-400); RED BLOOD COUNT 4.93 x10^6/uL (3.82-5.3)
--- NOTE | 2020-12-01 11:07 | NUR ---
20 GAUGE IV STARTED RIGHT AC, PATIENT MEDICATD PER eMAR, CONNECTED TO MONITOR, VSS, CALL LIGHT WITHIN REACH, NO FURTHER NEEDS AT THIS TIME.
[2020-12-01 11:19] LABS: ALBUMIN 3.5 g/dL (3.4-5.0); ANION GAP 4 mmol/L (5-15); CALCIUM 8.8 mg/dL (8.5-10.1); CHLORIDE 108 mmol/L (98-107); CREATININE 0.54 mg/dL (0.55-1.02)
--- NOTE | 2020-12-01 11:20 | NUR ---
ULTRASOUND AT BEDSIDE.
[2020-12-01] MEDS ORDERED: SODIUM CHLORIDE FLUSH 10ML SYR IVF ONE (11:30)
[2020-12-01] MEDS ORDERED: MORPHINE SULFATE 4 MG/ML, 1ML ONE (12:26)
--- NOTE | 2020-12-01 12:32 | NUR ---
PATIENT C/O 09/18 RLQ PAIN, MEDICATED PER eMAR, VSS. UA COLLECTED VIA STRAIGHT CATH, PATIENT TOLERATED WELL, SENT TO LAB, CALL LIGHT WITHIN REACH.
[2020-12-01 12:42] LABS: MICROSCOPIC AUTO
--- NOTE | 2020-12-01 13:06 | NUR ---
ERMD AT BEDSIDE TO DISCUSS POC.
[2020-12-01 13:18] VITALS: BP 112/67
--- NOTE | 2020-12-01 13:33 | NUR ---
IV removed with tip intact. Patient given discharge instructions and prescriptions and they have confirmed that they understand the instructions. Patient ambulatory with steady gait. NAD, all questions answered appropriately, denies additional needs at this time. No personal belongings left in room after discharge.
== END 2020-12-01 13:34 | disposition home or self-care (01) ==
LOC: ED 13:25
DX: R10.11 Right upper quadrant pain (principal); R11.0 Nausea
CPT/HCPCS: 36415; 76770; 80048; 81001; 82040; 84703; 85025; 87086; 96361; 96374; 96375; 99284; J1885; J2270; J2405; J7030